=== PATIENT | male | born 1980 | race Caucasian/White ===

== ENCOUNTER 2020-05-13 14:37 | Outpatient (CLI) | payer OTHER, SELFPAY ==
[2020-05-13 15:44] LABS: Alanine Aminotransferase 37 U/L (4-50); Albumin Level 4.4 g/dL (3.5-5.1); Alkaline Phosphatase 68 U/L (38-126); Aspartate Amino Transferase 31 U/L (17-59); Bilirubin,Total 0.8 mg/dL (0.2-1.3); Blood Urea Nitrogen 20 mg/dL (9-20); Calcium 9.3 mg/dL (8.4-10.2); Carbon Dioxide 28 mmol/L (22-30); Chloride 105 mmol/L (98-107); Estimated Glomerular Filt Rate > 60; Glucose 86 mg/dL (75-110); Potassium 3.9 mmol/L (3.4-5.0); Sodium 137 mmol/L (137-145)
== END 2020-05-13 14:38 | disposition home or self-care (01) ==
PROVIDERS: PCP Family Medicine; Visit Provider Physician Assistant
DX: R21 Rash and other nonspecific skin eruption (principal)
CPT/HCPCS: 36415; 80053

== ENCOUNTER 2020-09-29 06:53 | Outpatient (NON) | payer OTHER, SELFPAY ==
[2020-09-29 17:44] LABS: SARS-CoV-2 RNA PCR Positive
== END 2020-09-29 06:54 ==
LOC: ANHCOVIDDT 06:58
PROVIDERS: PCP Family Medicine; Visit Provider Family Medicine
DX: U07.1 COVID-19 (principal)
CPT/HCPCS: 87635; C9803; U0003

== ENCOUNTER 2021-05-18 09:56 | Outpatient (CLI) | payer OTHER, SELFPAY ==
[2021-05-18 10:14] LABS: Basophils Percent Auto 0.4 % (0.2-1.2); Eosinophils Absolute Auto 0.1 K/mm3 (0-0.3); Eosinophils Percent Auto 1.5 % (0-4.4); Hematocrit 48.1 % (42.0-52.0); Hemoglobin 16.5 g/dL (14.0-18.0); Immature Granulocyte Absolute 0.03 K/mm3 (0.00-0.031); Immature Granulocyte Percent A 0.4 % (0-0.5); Lymphocytes Absolute Auto 2.17 K/mm3 (0.9-3.2); Lymphocytes Percent Auto 31.6 % (18.3-44.2); Mean Corpuscular HGB Conc 34.3 g/dl (32-36); Mean Corpuscular Hemoglobin 33.5 pg (26-34); Mean Corpuscular Volume 97.8 fl (80-100); Mean Platelet Volume 8.9 fl (7.4-10.4); Monocytes Absolute Auto 0.7 K/mm3 (0.1-0.6); Neutrophils Absolute Auto 3.9 K/mm3 (1.3-6.7); Neutrophils Percent Auto 56.1 % (45.5-73.1); Platelet Count Result 230 k/mm3 (150-375); Red Blood Count 4.92 M/mm3 (4.6-6.20); Red Cell Distribution Width 12.1 % (11.5-14.5); White Blood Count 6.9 K/mm3 (4.5-10.0)
[2021-05-18 10:32] LABS: Alanine Aminotransferase 25 U/L (4-50); Albumin Level 4.4 g/dL (3.5-5.1); Alkaline Phosphatase 88 U/L (38-126); Anion Gap 6 mmol/L (8-16); Aspartate Amino Transferase 31 U/L (17-59); Bilirubin,Total 0.5 mg/dL (0.2-1.3); Blood Urea Nitrogen 13 mg/dL (9-20); Calcium 9.1 mg/dL (8.4-10.2); Carbon Dioxide 31 mmol/L (22-30); Chloride 107 mmol/L (98-107); Estimated Glomerular Filt Rate > 60; Glucose 95 mg/dL (75-110); Potassium 4.9 mmol/L (3.4-5.0); Sodium 144 mmol/L (137-145)
== END 2021-05-18 09:57 | disposition home or self-care (01) ==
LOC: ANHLAB 09:58
PROVIDERS: PCP Family Medicine; Visit Provider Physician Assistant
DX: F41.1 Generalized anxiety disorder (principal); R21 Rash and other nonspecific skin eruption; R10.30 Lower abdominal pain, unspecified; N48.89 Other specified disorders of penis
CPT/HCPCS: 36415; 80053; 85025

== ENCOUNTER 2024-10-15 01:50 | Day surgery (SDC) | payer BC, SELFPAY ==
[2024-10-05 15:11] VITALS: BMI 31.1
[2024-10-15 08:49] VITALS: BP 146/93; PULSE 85; RESP 18; TEMP 35.8; O2SAT 99; BMI 30.4
[2024-10-15] MEDS: LACTATED RINGERS 1,000 ML 150 ML IV CONT (09:00)
--- NOTE | 2024-10-15 09:16 | WPDANESEPPF ---
Anes - Initial Pre Proc Eval Procedure: Operation Date: 10/15/24 10:00 Proposed Procedures p Colonoscopy - Ziyad Peña MD Date/Time: 10/15/24 09:16 Surgeon: Ziyad Peña MD Pre Op Diagnosis: Hemorrhage Patient Data Age: 44 Gender: M Height: 1.85 m Weight: 104.5 kg Last Vital Signs Temp 35.8 C L 10/15/24 08:49 Pulse 85 10/15/24 08:49 Resp 18 10/15/24 08:49 BP 146/93 H 10/15/24 08:49 Pulse Ox 99 10/15/24 08:49 O2 Del Method Room Air 10/15/24 08:49 Allergies Allergy/AdvReac Type Severity Reaction Status Date / Time No Known Allergies Allergy Unknown Verified 10/15/24 08:47 Home Medications Medication Instructions Recorded Confirmed Type pantoprazole 20 mg tablet,delayed 20 mg PO QAM #30 tabs 05/18/21 10/15/24 Rx release escitalopram oxalate 10 mg tablet 10 mg PO DAILY #30 tabs 02/06/24 10/15/24 Rx losartan 50 mg tablet 50 mg PO DAILY #90 tabs 06/17/24 10/15/24 Rx methylphenidate HCl 36 mg 36 mg PO QAM 09/21/24 10/15/24 History tablet,extended release 24 hr ([facility]) Patient hx anesthesia problems: none Family hx anesthesia problems: none Results Review: All pre-operative results and documents have been reviewed as part of the pre-operative evaluation. [facility] Past Medical History Medical History (Updated 10/15/24 @ 09:16 by Doyle Coto MD) Acute disruption of syndesmosis of ankle joint Fracture of posterior malleolus of left tibia Fracture of proximal end of left fibula HTN (hypertension) [place] (obstructive sleep apnea) Vitamin B12 deficiency Family History Family History Mother Depression Hypertension Father Hypertension Other Family history of alcoholism Family history of malignant neoplasm Social History Social History Smoking packs per day: 0.5 Smoking cigarettes per day: 10.0 Smoking status: Former smoker Second hand tobacco smoke exposure: No Smoking end date: 12/02/08 Alcohol intake: current Drinks per week: 4 Substance use: never Substance use type: does not use Living arrangements: alone Occupation/Education: occupation Gender identity (if verbalized by the patient): Male Spiritual care concerns: No Anes - Eval Final PreProcedure Day of Procedure 10/15/24 09:16 Patient weight: obese Heart: regular rate and rhythm Lungs: clear to auscultation Airway: Mallampati scale class II Neurological: alert and oriented Last oral intake: >/= 8 hours ASA classification: III Emergent: no Anesthetic plan: proceed Anesthesia type and monitoring: general GIVS and standard monitoring Results Review: All pre-operative results and documents have been reviewed as part of the pre-operative evaluation. Informed Consent: The patient's anesthetic plan and its attendant risks and benefits were discussed with the patient/family/POA. Questions were solicited and answers provided to the satisfaction of the patient/family/POA.
--- NOTE | 2024-10-15 09:36 | PM.HPGS ---
History of Present Illness History of Present Illness Consent: Risks, benefits, and alternatives have been discussed and questions answered. Patient agrees to proceed with procedure. Chief complaint: Hemorrhage Narrative: Yobani Cazares is a 44 year old male here for first colonoscopy, had rectal bleeding Review of Systems Review of Systems: All systems reviewed & are unremarkable except as noted in HPI and below PMFSH Past Medical History Medical History (Updated 10/15/24 @ 09:39 by Ziyad Peña MD) Acute disruption of syndesmosis of ankle joint Fracture of posterior malleolus of left tibia Fracture of proximal end of left fibula HTN (hypertension) [place] (obstructive sleep apnea) Rectal bleeding Vitamin B12 deficiency Family History Family History Mother Depression Hypertension Father Hypertension Other Family history of alcoholism Family history of malignant neoplasm Social History Social History Smoking packs per day: 0.5 Smoking cigarettes per day: 10.0 Smoking status: Former smoker Second hand tobacco smoke exposure: No Smoking end date: 12/02/08 Alcohol intake: current Drinks per week: 4 Substance use: never Substance use type: does not use Living arrangements: alone Occupation/Education: occupation Gender identity (if verbalized by the patient): Male Spiritual care concerns: No Meds Home Medications and Allergies Home Medications Medication Instructions Recorded Confirmed Type pantoprazole 20 mg tablet,delayed 20 mg PO QAM #30 tabs 05/18/21 10/15/24 Rx release escitalopram oxalate 10 mg tablet 10 mg PO DAILY #30 tabs 02/06/24 10/15/24 Rx losartan 50 mg tablet 50 mg PO DAILY #90 tabs 06/17/24 10/15/24 Rx methylphenidate HCl 36 mg 36 mg PO QAM 09/21/24 10/15/24 History tablet,extended release 24 hr ([facility]) Allergies Allergy/AdvReac Type Severity Reaction Status Date / Time No Known Allergies Allergy Unknown Verified 10/15/24 08:47 Vital Signs Vital Signs - 24 hr 10/15/24 08:49 Temperature 96.5 F L Pulse Rate 85 Respiratory Rate 18 Blood Pressure 146/93 H Pulse Oximetry 99 Oxygen Delivery Room Air Exam Const: General: comfortable and no acute distress HENMT: Face/Nose/Sinus: Normal nares present Eyes: General: appearance normal, both eyes and all related structures Neck: Neck: no JVD Resp: Auscultation: clear to auscultation bilaterally Cardio: Rate: regular rate Rhythm: regular rhythm GI: Inspection: non-distended GI Palp: Yes Soft to palpation Skin: General skin exam: normal color Neuro: General: gait normal Speech: normal speech Extrem: General: normal to inspection Psych: Mental Status: mental status grossly normal Assessment and Plan Assessment and plan (1) Rectal bleeding: Code(s): K62.5 - Hemorrhage of anus and rectum Status: Acute Assessment and Plan: colonoscopy
[2024-10-15 09:52] VITALS: BP 103/69; PULSE 68; RESP 17; O2SAT 99
[2024-10-15 10:02] VITALS: BP 115/84; PULSE 64; RESP 17; O2SAT 99
[2024-10-15 10:12] VITALS: BP 118/84; PULSE 72; RESP 15; O2SAT 100
== END 2024-10-15 10:25 | disposition home or self-care (01) ==
PROVIDERS: PCP Family Medicine; Referring Provider Family Medicine; Visit Provider Internal Medicine Gastroenterology
PROC: 0DJD8ZZ Inspection of Lower Intestinal Tract, Via Natural or Artificial Opening Endoscopic (ICD-10-PCS; CPT 45378; principal; 2024-10-15 10:00)
DX: K92.1 Melena (principal); I10 Essential (primary) hypertension; G47.33 Obstructive sleep apnea (adult) (pediatric); E53.8 Deficiency of other specified B group vitamins; E66.9 Obesity, unspecified; Z68.30 Body mass index [BMI] 30.0-30.9, adult; Z87.891 Personal history of nicotine dependence; Z80.9 Family history of malignant neoplasm, unspecified
CPT/HCPCS: 45378; J2003; J2704; J7120